=== PATIENT | female | born 1985 | race Caucasian/White ===

== ENCOUNTER 2017-10-21 01:54 | Inpatient (IN) | payer BC ==
[2017-10-21] MEDS ORDERED: Metoclopramide 10 MG/2 ML SDV ONE (02:22)
[2017-10-21] MEDS ORDERED: Lactated Ringers 1,000 ML ONE ×2 (02:23→03:30)
[2017-10-21] MEDS ORDERED: Citric Acid/Sodium Citrate Solution 30 ML Cup ONE (02:23)
[2017-10-21] MEDS ORDERED: Nalbuphine 20 MG/ML 1 ML Syringe IVPUSH PRN (02:30)
[2017-10-21] MEDS ORDERED: ceFAZolin 2 GM in Premix Bag 1 BAG IV ONE (02:30)
[2017-10-21] MEDS ORDERED: Metoclopramide 10 MG/2 ML SDV IVPUSH ONE (02:30)
[2017-10-21] MEDS ORDERED: Oxytocin/Lactated Ringers 10 UNIT/1,000 ML BAG IV SCH (02:30)
[2017-10-21] MEDS ORDERED: Citric Acid/Sodium Citrate Solution 30 ML Cup PO ONE (02:30)
[2017-10-21] MEDS ORDERED: Lactated Ringers 1,000 ML IV SCH (02:30)
[2017-10-21] MEDS ORDERED: Sodium Chloride 0.9% 10 ML Syringe FLUSH PRN (02:30)
--- NOTE | 2017-10-21 02:44 | PCM.LDHP ---
L&D History of Present Illness - General Admit Problem/Dx: Patient Status Order with Admit Dx/Problem 10/21/17 02:30 Patient Status [ADT] Routine Admission Diagnosis/Problem Admission Diagnosis/Problem - History of Present Illness Introduction:: 10/20/17 06:28 39-5/7 week intrauterine upon admission for elective repeat section. Source of Information: Patient History Limitations: Reports: No Limitations - History of Present Illness Introduction:: Manda is a 32-year-old 3 para 2003 white female who is admitted for elective repeat certain section on the a.m. of 10/21/17.. JENN is set at 2017 by certain last menstrual period which started on 01/22/2017 and is supported by 2 ultrasounds being done on 03/17/2017 on 06/16/2017. The procedure of repeat section, risks, benefits, alternatives of care and follow-up were discussed in detail. She appears understand and wishes to proceed. She's had 2 previous C-sections with the first one being done for nonreassuring heart tones and the second one being done as a repeat . [employer] YAC[employer] history patient is 3 para 2001. Patient had menarche at age 12, cycles occur daily 28 days and last for 5-7 days. She was using no control to time conception and her final last period was certain starting on 01/22/2017. Previous 2 deliveries include the followin. Male born 11/27/2009 at 40 weeks gestational age7 lbs. 6 oz.primary section done in [place], [place]. Child's name is Tariq. done for nonreassuring heart tones 2. Male infant born 07/07/2013 at 38 weeks gestational age7 lbs. 0 oz.[facility] in [place]. Child's name is Migue. course has been remarkable for hypothyroidism and exophthalmos. 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 Condition has been stable and follow-up after has been advised. In genetic testing. Group B strep screen is positive. She has a history of Graves' disease. Serum progesterone early on resulted in progesterone supplementation. Rh- and did receive RhoGAM on 07/28/2017. course started at 10-6/7 weeks gestational age. She gained 21 pounds from 143-164 pounds during the course of the . Fundal height growth was appropriate. No problems were encountered. Vital signs remained stable throughout the course. Laboratory testing and showed blood to be O- with a negative end by screen. Hemoglobin is 12.5 g/dL. Platelets were 265,000 at first visit. She is rubella immune. RPR is nonreactive. Urine culture was unremarkable. Hepatitis B surface antigen and HIV assays were both negative. Chlamydia and gonorrhea both negative. TSH on 04/08/2017 was 10.907 and her thyroid hormone dosage was increased. Second trimester labs showed hemoglobin 11.3 g/dL which time her her iron supplementation was started. Platelets are normal at 186,000. One-hour GTT was normal at 108. End by screen was negative at that time and RhoGAM was given. Group B strep screen was done at 36 weeks and was found to be positive. Allergies none Medications: 1. Claritin 10 mg by mouth daily when necessary for allergies 2. Ferrous sulfate 325 mg by mouth daily 3. Colace 100 mg by mouth twice a day when necessary for constipation 4. Zantac 150 mg by mouth every 12 hours when necessary for dyspepsia 5. Synthroid 137 g daily 6. Calcium 600 mg tablets daily 7. vitamins 1 by mouth daily 8. Vitamin D 1000 units daily by mouth Past medical history: 1. Graves' disease with resultant exophthalmos. 2. Gastro-esophageal reflux disease Past surgical history: 1. 2 2. Cholecystectomy 3. Total thyroidectomy Family history: Mother and father alive and well. Grandmother with colon cancer and paternal grandfather with prostate cancer. No anesthesia, bleeding, blood clotting problems noted in the family. Social history: Patient is . is Shakir. She does not use any significant most alcohol, drugs or tobacco. They live in [place], [place]. Review of systems: In general patient presently feels well. She reports good activity. Skin: Negative HEENT: Negative Cardiovascular: No chest pain or exercise intolerance Respiratory: No shortness of breath or infectious symptoms Breasts: Changes associated with . Patient plans to breast-feed. GI: Negative : Changes associated with increase in fundal height Extremities and musculoskeletal: Negative other than occasional edema Neurological: Negative Psychological: Negative Physical exam: In general the patient is well-developed, well-nourished, pleasant feels stated age in no acute distress. Blood pressure on last evaluation in clinic was 122/62. Weight was 160 4. or with the pre- weight of 143, height is 5 feet 8 inches. Pre-gravid body mass index is 21.3. Skin is warm and dry without lesions. HEENT, neck and back with some mild exophthalmos. This is unchanged end course the . Lungs are clear with good breath sounds in all lung celis. Cardiovascular exam shows regular rate and rhythm without murmurs. Breasts not evaluate this time as they were checked at first visit and found to be normal. Abdomen is protuberant with last fundal height at 37.5 cm baby in vertex presentation by Alo maneuvers. Last cervical exam on 10/14/2017 shows cervix to be closed, 50% effaced, soft, -5, mid position. Extremities and neurological exam are grossly within normal limits. H&P Review of Systems - Review of Systems: Review Of Systems: See Below L&D Exam - Exam Exam: See Below Problem List Initiated/Reviewed/Updated: Yes Assessment/Plan Comment:: 1. 38 6/7 week intrauterine upon admission, in early labor after continuous rupture membranes, for repeat section. 2.History of hyperthyroidism, status post total thyroidectomy on hormone replacement now. Stable during . Under the care of both endocrinology and ophthalmology. Patient scheduled to see them . 3. Rh negative-has had RhoGAM during . May be candidate for RhoGAM if baby is Rh+ 4. Rubella immune 5. Patient plans to breast-feed Plan: 1. Repeat lower uterine segment transverse section through [place] skin incision under spinal anesthesia. Procedure, risks, benefits, alternatives of care, follow-up all discussed with patient. She appears understand, wishes to proceed and signed a consent. 2. CBC, type and screen, urinalysis prior to surgery 3. Ancef 2 g IV preop for infection prophylaxis. 4. DVT prophylaxis with SCDs. 5. Routine care thereafter. - Related Data Allergies/Adverse Reactions: Allergies Allergy/AdvReac Type Severity Reaction Status Date / Time No Known Allergies Allergy Verified 10/21/17 02:15 Past Medical History HEENT History: Reports: Other (See Below) Other HEENT History: iNCREASED PRESSURE IN OPTIC NERVE, FOLOW UP IN nov. [employer] Y[employer]HT History: Reports: Endocrine/Metabolic History: Reports: Hypothyroidism Hematologic History: Reports: Anemia Social & Family History - Family History Family Medical History: Noncontributory - Tobacco Use Smoking Status *Q: Never Smoker Second Hand Smoke Exposure: No - Caffeine Use Caffeine Use: Reports: Coffee - Recreational Drug Use Recreational Drug Use: No H&P Review of Systems - Review of Systems: Review Of Systems: See Below L&D Exam - Exam Exam: See Below - Vital Signs Vital Signs: Last Vital Signs Temp 37.0 C 10/21/17 02:11 Pulse 71 10/21/17 02:11 Resp 16 10/21/17 02:11 BP 133/77 10/21/17 02:11 Pulse Ox 100 10/21/17 02:11 Weight: 75.296 kg Problem List Initiated/Reviewed/Updated: Yes Orders Last 24hrs: Active Orders 24 hr Category Date Time Status Patient Status [ADT] Routine ADT 10/21/17 02:30 Active Communication Order [RC] ROUTINE Care 10/21/17 02:30 Active Heart Tones [RC] PER UNIT ROUTINE Care 10/21/17 02:30 Active Non Stress Test [RC] PER UNIT ROUTINE Care 10/21/17 02:30 Active Peripheral IV Care [RC] . DIRECTED Care 10/21/17 02:31 Active Procedure Site Prep Instruct [RC] ASDIRECTED Care 10/21/17 02:30 Active Verify Patient Consent Obtain [RC] PER UNIT ROUTINE Care 10/21/17 02:30 Active Vital Signs [RC] PFP Care 10/21/17 02:30 Active CBC WITH AUTO DIFF [HEME] Stat Lab 10/21/17 02:30 Ordered RAPID PLASMA REAGIN,RPR [CHEM] Routine Lab 10/21/17 02:30 Ordered TYPE AND SCREEN [BBK] Routine Lab 10/21/17 02:30 Ordered Lactated Ringers [Ringers, Lactated] 1,000 ml Med 10/21/17 02:30 Active IV ASDIRECTED Metoclopramide [Reglan] Med 10/21/17 02:30 Once 10 mg IVPUSH ONETIME ONE Nalbuphine [Nubain] Med 10/21/17 02:30 Ordered 10 mg IVPUSH Q2H PRN Oxytocin/Lactated Ringers [Pitocin in LR 10 Units/1,000 Med 10/21/17 02:30 Active ML] 10 unit in 1,000 ml IV ASDIRECTED Sodium Chloride 0.9% [Saline Flush] Med 10/21/17 02:30 Active 10 ml FLUSH ASDIRECTED PRN ceFAZolin [Ancef] 2 gm Med 10/21/17 02:30 Active Premix Bag 1 bag IV ONETIME Peripheral IV Insertion Adult [OM.PC] Routine Oth 10/21/17 02:30 Ordered Schedule Procedure [COMM] Per Unit Routine Oth 10/21/17 02:30 Ordered Resuscitation Status Routine Resus Stat 10/21/17 02:30 Ordered Medication Orders Cefazolin Sodium/Dextrose 2 gm (/ Premix) 50 mls @ 100 mls/hr IV ONETIME ONE Stop: 10/21/17 02:59 Lactated Ringer's (Ringers, Lactated) 1,000 mls @ 125 mls/hr IV ASDIRECTED SYLVIE Last Admin: 10/21/17 02:39 Dose: 125 mls/hr Oxytocin/Lactated Ringer's (Pitocin In Lr 10 Units/1,000 Ml) 10 unit in 1,000 mls @ 100 mls/hr IV ASDIRECTED SYLVIE Nalbuphine HCl (Nubain) 10 mg IVPUSH Q2H PRN PRN Reason: pain Sodium Chloride (Saline Flush) 10 ml FLUSH ASDIRECTED PRN PRN Reason: Keep Vein Open
[2017-10-21] MEDS ORDERED: Bupivacaine 0.5% 30 ML SDV ONE (02:50)
[2017-10-21] MEDS ORDERED: Morphine PF 1 MG/ML Amp ONE (02:57)
--- NOTE | 2017-10-21 02:59 | PCM.PREANE ---
Preanesthetic Assessment - Anesthesia/Transfusion/Family Hx Anesthesia History: Prior Anesthesia Reaction Type of Anesthesia Reaction: Excessive Nausea/Vomiting Transfusion History: No Prior Transfusion(s) - Review of Systems General: No Symptoms Pulmonary: No Symptoms Cardiovascular: No Symptoms Gastrointestinal: No Symptoms Neurological: No Symptoms Other: Reports: None - Physical Assessment NPO Status Date: 10/21/17 NPO Status Time: 01:00 O2 Sat by Pulse Oximetry: 100 Respiratory Rate: 16 Vital Signs: Last Vital Signs Temp 98.6 F 10/21/17 02:11 Pulse 71 10/21/17 02:11 Resp 16 10/21/17 02:11 BP 133/77 10/21/17 02:11 Pulse Ox 100 10/21/17 02:11 Height: 1.73 m Weight: 75.296 kg ASA Class: 2E Mental Status: Alert & Oriented x3 Airway Class: Mallampati = 1 Dentition: Reports: Normal Dentition Thyro-Mental Finger Breadths: 3 Mouth Opening Finger Breadths: 3 ROM/Head Extension: Full Lungs: Clear to Auscultation Cardiovascular: Regular Rate - Allergies Allergies/Adverse Reactions: Allergies Allergy/AdvReac Type Severity Reaction Status Date / Time No Known Allergies Allergy Verified 10/21/17 02:15 - Acknowledgements Anesthesia Type Planned: Spinal Pt an Appropriate Candidate for the Planned Anesthesia: Yes Alternatives and Risks of Anesthesia Discussed w Pt/Guardian: Yes Pt/Guardian Understands and Agrees with Anesthesia Plan: Yes PreAnesthesia Questionnaire HEENT History: Reports: Other (See Below) Other HEENT History: iNCREASED PRESSURE IN OPTIC NERVE, FOLOW UP IN nov. 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: Endocrine/Metabolic History: Reports: Hypothyroidism Hematologic History: Reports: Anemia - Past Surgical History GI Surgical History: Reports: Cholecystectomy Female Surgical History: Reports: Section (x2) Endocrine Surgical History: Reports: Thyroidectomy - SUBSTANCE USE Smoking Status *Q: Never Smoker Second Hand Smoke Exposure: No Recreational Drug Use History: No - HOME MEDS Home Medications: Home Meds Cholecalciferol (Vitamin D3) [Vitamin D3] 1 tab PO DAILY 10/21/17 [History] Docusate Sodium [Colace] 100 mg PO DAILY 10/21/17 [History] Ferrous Sulfate [Iron] 325 mg PO DAILY 10/21/17 [History] Levothyroxine Sodium [Synthroid] 137 mcg PO ACBREAKFAST 10/21/17 [History] Loratadine [Claritin] 10 mg PO ASDIRECTED PRN 10/21/17 [History] PNV95/Ferrous Fumarate/FA [ Tablet] 1 tab PO DAILY 10/21/17 [History] Ranitidine HCl [Zantac 75] 1 tab PO ASDIRECTED PRN 10/21/17 [History] - CURRENT (IN HOUSE) MEDS Current Meds: Current Medications Cefazolin Sodium/Dextrose 2 gm (/ Premix) 50 mls @ 100 mls/hr IV ONETIME ONE Stop: 10/21/17 02:59 Lactated Ringer's (Ringers, Lactated) 1,000 mls @ 125 mls/hr IV ASDIRECTED [facility] Last Admin: 10/21/17 02:39 Dose: 125 mls/hr Oxytocin/Lactated Ringer's (Pitocin In Lr 10 Units/1,000 Ml) 10 unit in 1,000 mls @ 100 mls/hr IV ASDIRECTED SYLVIE Nalbuphine HCl (Nubain) 10 mg IVPUSH Q2H PRN PRN Reason: pain Sodium Chloride (Saline Flush) 10 ml FLUSH ASDIRECTED PRN PRN Reason: Keep Vein Open Discontinued Medications Citric Acid/Sodium Citrate (Bicitra Solution) Confirm Administered Dose 30 ml .ROUTE .STK-MED ONE Stop: 10/21/17 02:24 Citric Acid/Sodium Citrate (Bicitra Solution) 30 ml PO ONETIME ONE Stop: 10/21/17 02:31 Last Admin: 10/21/17 02:39 Dose: 30 ml Lactated Ringer's (Ringers, Lactated) Confirm Administered Dose 1,000 mls @ as directed .ROUTE .STK-MED ONE Stop: 10/21/17 02:24 Metoclopramide HCl (Reglan) Confirm Administered Dose 10 mg .ROUTE .STK-MED ONE Stop: 10/21/17 02:23 Metoclopramide HCl (Reglan) 10 mg IVPUSH ONETIME ONE Stop: 10/21/17 02:31 Last Admin: 10/21/17 02:39 Dose: 10 mg
[2017-10-21] MEDS ORDERED: Bupivacaine 0.75%/D5W 2 ML Amp ONE (03:00)
[2017-10-21] MEDS ORDERED: ceFAZolin 1 GM Vial ONE (03:00)
[2017-10-21] MEDS ORDERED: Oxytocin 10 Units/1 ML SDV ONE ×3 (03:00→03:53)
[2017-10-21] MEDS ORDERED: Ketorolac 30 MG/ML SDV ONE (03:47)
--- NOTE | 2017-10-21 04:26 | PCM.POSTAN ---
POST ANESTHESIA ASSESSMENT - MENTAL STATUS Mental Status: Alert, Oriented - RESPIRATORY Respiratory Status: Respiratory Rate WNL, Airway Patent, O2 Saturation Stable - CARDIOVASCULAR CV Status: Pulse Rate WNL, Blood Pressure Stable - GASTROINTESTINAL GI Status: No Symptoms - PAIN Pain Score: 0 - POST OP HYDRATION Hydration Status: Adequate & Stable
--- NOTE | 2017-10-21 04:28 | PCM.OPNOTE ---
- General Post-Op/Procedure Note Date of Surgery/Procedure: 10/21/17 Operative Procedure(s): Repeat lower uterine segment transverse section through Pfannenstiel skin incision Findings: Uterus tubes and ovaries consistent with term . Increased vascularity in the area of the bladder and in the area of the broad ligaments bilaterally. Ovaries functional in appearance. Lower uterine segment very thin with myometrium only 2 mm thick. Clear amniotic fluid. Baby in vertex presentation. Male infant weighing 6 lbs. 15 oz. with Apgars of 8 and 9 born at 0336 hrs on . Pre Op Diagnosis: 1. 38-6/7 week intrauterine . 2. Spontaneous rupture membranes, early active labor, desire for repeat section Post-Op Diagnosis: Same with delivery of viable, 6 lbs. 15 oz. male with Apgars of 8 and 9 at 0336 hours on 10/22/2007 Anesthesia Technique: Spinal Other Anesthesia Type: Marcaine 0.5%20 mL local Primary Surgeon: Mj Childress Secondary Surgeon: Kari Mares Anesthesia Provider: Eugene Buenrostro Gantry Crane Operator: Anita Lucio Reason Gantry Crane Operator Was Necessary: Retraction, assistance, patient safety, quality of care. Role of Gantry Crane Operator: Retraction, assistance Fluid Replacement, Intraop: 2,500 Output, Urine Amount: 500 EBL in mLs: 500 Drain/Tube Comments:: Indwelling bladder catheter Complications: None Condition: Good Free Text/Narrative:: Surgery duration: Surgery duration: 41 minutes Procedure: The patient is appropriately consented. Patient was transferred to the room and placed in a sitting position. Spinal anesthesia was administered. After confirmation of adequate anesthesia patient was placed in a supine position with a wedge under her right side to facilitate left lateral positioning. The patient was prepped and draped in usual fashion after Dangelo catheter was already placed . The anesthetic was checked and found to be adequate. 20 mL of Marcaine 0.5% was injected locally in the Pfannenstiel incision site. The Pfannenstiel skin incision was then made and carried down through skin, subcutaneous and fascial layers. Old skin scar was removed. The fascia was then undermined superiorly and inferiorly to allow for adequate operating room. The recti muscles midline and preperitoneal fat was bluntly dissected. Peritoneal cavity was entered longitudinally. The vesicouterine peritoneum was then incised transversely and bladder flap was developed. Myometrium was incised transversely to the level of the amniotic sac. This incision was extended bilaterally in a blunt fashion. The amniotic sac was then ruptured resulting in clear amniotic fluid. A hand is placed in the low uterine segment and the baby's head was brought forth through the incision. The baby was completely delivered using fundal pressure in a routine fashion. The nose and mouth were bulb suctioned. Baby's cord was clamped x2 cut and baby was handed off to attending return agent airport Dr Cooper. Placenta was expressed after cord blood was obtained. Uterus was then exteriorized to allow for easier closure. The cervix was assessed and found to be dilated adequately to allow egress of blood. The uterus was closed in 2 layers. The first layer a running locked suture of 0 Monocryl, the second layer a running locked vertical mattress suture of 0 Monocryl. Hemostasis confirmed at this time. Sponge instrument needle counts are correct. The uterus was returned to the abdominal cavity and lateral gutters were cleared of blood. Once again sponge needle counts are correct. The anterior abdominal wall was closed with a #1 PDS suture from angle to angle. The subcutaneous area was found to be free of any bleeders. Skin was closed with a running subcuticular stitch of 3-0 Monocryl in a vertical mattress suture fashion using a Henri needle. Prineo mesh/glue was then applied to further approximate the incision. It should be noted that patient received 2 g of Ancef preoperatively for infection prophylaxis and had Pitocin infused after delivery of the placenta to facilitate uterine contraction. She also had sequential compression stockings in place for DVT prophylaxis. Patient was discharged from the operating room in satisfactory condition.
[2017-10-21] MEDS ORDERED: Dextrose 5%-Lactated Ringers 1,000 ML IV SCH (05:27)
[2017-10-21] MEDS ORDERED: Lanolin 100% Cream 7 GM Tube TOP PRN (05:27)
[2017-10-21] MEDS ORDERED: Ibuprofen 800 MG Tab PO SCH (05:27)
[2017-10-21] MEDS ORDERED: Naloxone 0.4 MG/ML SDV IVPUSH PRN (05:27)
[2017-10-21] MEDS ORDERED: Docusate Sodium 100 MG Cap PO PRN (05:27)
[2017-10-21] MEDS ORDERED: ePHEDrine 50 MG/ML SDV IVPUSH PRN (05:27)
[2017-10-21] MEDS ORDERED: Ondansetron 4 MG/2 ML SDV IV PRN (05:27)
[2017-10-21] MEDS ORDERED: diphenhydrAMINE 50 MG/ML SDV IVPUSH PRN (05:27)
[2017-10-21] MEDS: Simethicone 80 MG Tab.Chew PO SCH ×3 (08:09→17:49)
--- NOTE | 2017-10-21 09:07 | PCM.PN ---
- General Info Date of Service: 10/21/17 Admission Dx/Problem (Free Text): 32 y/o admitted following repeat early 10/21/17. Functional Status: Reports: Pain Controlled (patient desires ibuprofen; pain otherwise controlled), Tolerating Diet, Ambulating. Denies: Urinating (catheter ) - Review of Systems General: Reports: No Symptoms HEENT: Reports: No Symptoms Pulmonary: Reports: No Symptoms Cardiovascular: Reports: No Symptoms Gastrointestinal: Reports: No Symptoms Genitourinary: Reports: No Symptoms Musculoskeletal: Reports: No Symptoms Skin: Reports: Other ( incision with some drainage and tenderness) Neurological: Reports: No Symptoms Psychiatric: Reports: No Symptoms - Patient Data Vitals - Most Recent: Last Vital Signs Temp 97.9 F 10/21/17 07:45 Pulse 72 10/21/17 07:46 Resp 18 10/21/17 05:10 BP 111/71 10/21/17 07:45 Pulse Ox 100 10/21/17 07:46 Weight - Most Recent: 166 lb I&O - Last 24 Hours: Intake & Output 10/20/17 10/21/17 10/21/17 22:59 06:59 14:59 Intake Total 2850 Output Total 1400 Balance 1450 Lab Results Last 24 Hours: Laboratory Results - last 24 hr 10/21/17 10/21/17 Range/Units 02:35 02:35 WBC 8.41 (3.98-10.04) K/mm3 RBC 3.65 L (3.98-5.22) M/mm3 Hgb 12.0 (11.2-15.7) gm/L Hct 33.9 L (34.1-44.9) % MCV 92.9 (79.4-94.8) fl MCH 32.9 H (25.6-32.2) pg MCHC 35.4 (32.2-35.5) g/dl RDW Std Deviation 42.2 (36.4-46.3) fL Plt Count 171 L (182-369) K/mm3 MPV 10.1 (9.4-12.3) fl Neut % (Auto) 73.7 H (34.0-71.1) % Lymph % (Auto) 17.5 L (19.3-51.7) % Cook % (Auto) 8.1 (4.7-12.5) % Eos % (Auto) 0.4 L (0.7-5.8) Baso % (Auto) 0.1 (0.1-1.2) % Neut # (Auto) 6.20 H (1.56-6.13) K/mm3 Lymph # (Auto) 1.47 (1.18-3.74) K/mm3 Cook # (Auto) 0.68 H (0.24-0.36) K/mm3 Eos # (Auto) 0.03 L (0.04-0.36) K/mm3 Baso # (Auto) 0.01 (0.01-0.08) K/mm3 Blood Type O NEGATIVE Gel Antibody Screen Negative Med Orders - Current: Current Medications Diphenhydramine HCl (Benadryl) 25 mg IVPUSH Q6H PRN PRN Reason: Itching or Nausea Last Admin: 10/21/17 07:48 Dose: 25 mg Docusate Sodium (Colace) 100 mg PO Q12H PRN PRN Reason: Constipation Emollient Ointment (Lansinoh Hpa) 0 gm TOP ASDIRECTED PRN PRN Reason: Sore Nipples Last Admin: 10/21/17 08:09 Dose: 1 applic Ephedrine Sulfate (Ephedrine Sulfate) 5 mg IVPUSH SEECOMMENT PRN PRN Reason: Other Dextrose/Lactated Ringer's (Dextrose 5%-Lactated Ringers) 1,000 mls @ 125 mls/ hr IV ASDIRECTED [facility] Stop: 10/21/17 13:26 Last Admin: 10/21/17 05:47 Dose: 125 mls/hr Ibuprofen (Motrin) 800 mg PO Q8H [facility] Levothyroxine Sodium (Levothroid) 137 mcg PO ACBREAKFAST [facility] Last Admin: 10/21/17 08:04 Dose: 137 mcg Naloxone HCl (Narcan) 0.1 mg IVPUSH SEECOMMENT PRN PRN Reason: Respiratory Depression Ondansetron HCl (Zofran) 4 mg IV Q4H PRN PRN Reason: Nausea/Vomiting Oxycodone/Acetaminophen (Percocet 325-5 Mg) 2 tab PO Q4H PRN PRN Reason: Pain (moderate 4-6) Prenat Multivit/[place]/Iron/Folic Ac ( Plus Iron) 1 each PO BEDTIME [facility] Simethicone (Simethicone) 80 mg PO PCBED [facility] Last Admin: 10/21/17 08:09 Dose: 80 mg Discontinued Medications Bupivacaine HCl (Marcaine 0.5%) Confirm Administered Dose 30 ml .ROUTE .STK-MED ONE Stop: 10/21/17 02:51 Last Admin: 10/21/17 03:30 Dose: 20 ml Bupivacaine HCl/Dextrose (Marcaine 0.75% Spinal) Confirm Administered Dose 2 ml .ROUTE .STK-MED ONE Stop: 10/21/17 03:01 Cefazolin Sodium (Ancef) Confirm Administered Dose 2 gm .ROUTE .STK-MED ONE Stop: 10/21/17 03:01 Citric Acid/Sodium Citrate (Bicitra Solution) Confirm Administered Dose 30 ml .ROUTE .STK-MED ONE Stop: 10/21/17 02:24 Citric Acid/Sodium Citrate (Bicitra Solution) 30 ml PO ONETIME ONE Stop: 10/21/17 02:31 Last Admin: 10/21/17 02:39 Dose: 30 ml Lactated Ringer's (Ringers, Lactated) Confirm Administered Dose 1,000 mls @ as directed .ROUTE .STK-MED ONE Stop: 10/21/17 02:24 Cefazolin Sodium/Dextrose 2 gm (/ Premix) 50 mls @ 100 mls/hr IV ONETIME ONE Stop: 10/21/17 02:59 Lactated Ringer's (Ringers, Lactated) 1,000 mls @ 125 mls/hr IV ASDIRECTED [facility] Last Admin: 10/21/17 02:39 Dose: 125 mls/hr Oxytocin/Lactated Ringer's (Pitocin In Lr 10 Units/1,000 Ml) 10 unit in 1,000 mls @ 100 mls/hr IV ASDIRECTED [facility] Lactated Ringer's (Ringers, Lactated) Confirm Administered Dose 1,000 mls @ as directed .ROUTE .STK-MED ONE Stop: 10/21/17 03:31 Ibuprofen (Motrin) 800 mg PO Q8H [facility] Ketorolac Tromethamine (Toradol) Confirm Administered Dose 30 mg .ROUTE .STK- MED ONE Stop: 10/21/17 03:48 Metoclopramide HCl (Reglan) Confirm Administered Dose 10 mg .ROUTE .STK-MED ONE Stop: 10/21/17 02:23 Metoclopramide HCl (Reglan) 10 mg IVPUSH ONETIME ONE Stop: 10/21/17 02:31 Last Admin: 10/21/17 02:39 Dose: 10 mg Morphine Sulfate (Duramorph Pf) Confirm Administered Dose 1 mg .ROUTE .STK-MED ONE Stop: 10/21/17 02:58 Nalbuphine HCl (Nubain) 10 mg IVPUSH Q2H PRN PRN Reason: pain Oxytocin (Pitocin) Confirm Administered Dose 10 unit .ROUTE .STK-MED ONE Stop: 10/21/17 03:01 Oxytocin (Pitocin) Confirm Administered Dose 10 unit .ROUTE .STK-MED ONE Stop: 10/21/17 03:31 Oxytocin (Pitocin) Confirm Administered Dose 20 unit .ROUTE .STK-MED ONE Stop: 10/21/17 03:54 Sodium Chloride (Saline Flush) 10 ml FLUSH ASDIRECTED PRN PRN Reason: Keep Vein Open - Exam Quality Assessment: Urine Catheter General: Alert, Oriented, Cooperative Lungs: Clear to Auscultation, Normal Respiratory Effort Cardiovascular: Regular Rate, Regular Rhythm, No Murmurs GI/Abdominal Exam: Normal Bowel Sounds, Soft, No Distention, No Abnormal Bruit Back Exam: Normal Inspection, Full Range of Motion Skin: Warm, Dry, Intact Wound/Incisions: Healing Well, Drainage (some oozing at incision ) Neurological: No New Focal Deficit Psy/Mental Status: Alert, Normal Affect, Normal Mood - Problem List Review Problem List Initiated/Reviewed/Updated: Yes - Assessment Assessment:: Healthy appearing 32 y/o female Status [id number] Patient doing well Tolerating food and activity Notes some tenderness and oozing of incision Uterus is firm and non-tender, below the umbilicus - Plan Plan:: Rouine care Diet and activity as tolerated Ibuprofen 800 mg q8hr for pain control Anita Lucio, MS-3. Dr. Mj Childress has examined the patient and reviewed the plan.
[2017-10-21] MEDS: Ibuprofen 800 MG Tab PO SCH ×2 (12:00→18:55)
--- NOTE | 2017-10-21 14:07 | PCM48HPAN ---
Post Anesthesia Note - EVALUATION WITHIN 48HRS OF ANESTHETIC Vital Signs in Normal Range: Yes Patient Participated in Evaluation: Yes Respiratory Function Stable: Yes Airway Patent: Yes Cardiovascular Function Stable: Yes Hydration Status Stable: Yes Pain Control Satisfactory: Yes Nausea and Vomiting Control Satisfactory: Yes Mental Status Recovered: Yes
[2017-10-21] MEDS: Acetaminophen/oxyCODONE 325-5 MG Tab PO PRN ×2 (17:49→22:49)
[2017-10-22] MEDS: Ibuprofen 800 MG Tab PO SCH ×4 (02:42→20:08)
[2017-10-22] MEDS: Acetaminophen/oxyCODONE 325-5 MG Tab PO PRN ×4 (04:06→23:11)
[2017-10-22] MEDS: Simethicone 80 MG Tab.Chew PO SCH ×5 (09:03→23:09)
[2017-10-22] MEDS: Prenatal Multivitamin with Calcium/Folic Acid/Iron Tab PO SCH ×2 (09:17→22:44)
[2017-10-23] MEDS: Acetaminophen/oxyCODONE 325-5 MG Tab PO PRN ×3 (03:14→16:00)
[2017-10-23] MEDS: Ibuprofen 800 MG Tab PO SCH ×3 (04:36→18:19)
[2017-10-23] MEDS: Simethicone 80 MG Tab.Chew PO SCH ×4 (08:07→21:30)
--- NOTE | 2017-10-23 09:47 | PCM.SN ---
- Free Text/Narrative Note: note: Post operative day 2: Patient is doing well in the period. Minimal lochia, voiding well, ambulated without problems. Nursing without concerns. Patient is afebrile, vital signs are stable Abdomen is flat, soft, uterus is below the umbilicus and is firm and nontender. Incision is dry and intact. Skin mesh is in place and normal in position Legs are nontender. Assessment: recovery going well. Plan: Routine care. Patient be discharged home within the next 24-48 hours.
[2017-10-23] MEDS: Prenatal Multivitamin with Calcium/Folic Acid/Iron Tab PO SCH (20:54)
[2017-10-24] MEDS: Ibuprofen 800 MG Tab PO SCH (02:27)
[2017-10-24] MEDS: Simethicone 80 MG Tab.Chew PO SCH (08:18)
[2017-10-24] MEDS: Acetaminophen/oxyCODONE 325-5 MG Tab PO PRN (08:18)
--- NOTE | 2017-10-24 10:39 | PCM.DCSUM1 ---
Discharge Summary - Hospital Course Free Text/Narrative:: [facility] Post-Op/Procedure Note Patient Name: AVA OLIVERA Date of : 81 Patient Status: Inpatient Attending Provider: Mj Childress Date: 10/21/17 04:22 Initialization Date: 10/21/17 04:22 - General Post-Op/Procedure Note Date of Surgery/Procedure: 10/21/17 Operative Procedure(s): Repeat lower uterine segment transverse section through Pfannenstiel skin incision Findings: Uterus tubes and ovaries consistent with term . Increased vascularity in the area of the bladder and in the area of the broad ligaments bilaterally. Ovaries functional in appearance. Lower uterine segment very thin with myometrium only 2 mm thick. Clear amniotic fluid. Baby in vertex presentation. Male infant weighing 6 lbs. 15 oz. with Apgars of 8 and 9 born at 0336 hrs on . Pre Op Diagnosis: 1. 38-6/7 week intrauterine . 2. Spontaneous rupture membranes, early active labor, desire for repeat section Post-Op Diagnosis: Same with delivery of viable, 6 lbs. 15 oz. male with Apgars of 8 and 9 at 0336 hours on 10/22/2007 Anesthesia Technique: Spinal Other Anesthesia Type: Marcaine 0.5%20 mL local Primary Surgeon: Mj Childress Secondary Surgeon: Kari Mares Anesthesia Provider: Eugene Buenrostro Poultry Farmer Egg: Anita Lucio Reason Poultry Farmer Egg Was Necessary: Retraction, assistance, patient safety, quality of care. Role of Poultry Farmer Egg: Retraction, assistance Fluid Replacement, Intraop: 2,500 Output, Urine Amount: 500 EBL in mLs: 500 Drain/Tube Comments:: Indwelling bladder catheter Complications: None Condition: Good Free Text/Narrative:: Surgery duration: Surgery duration: 41 minutes Procedure: The patient is appropriately consented. Patient was transferred to the room and placed in a sitting position. Spinal anesthesia was administered. After confirmation of adequate anesthesia patient was placed in a supine position with a wedge under her right side to facilitate left lateral positioning. The patient was prepped and draped in usual fashion after Dangelo catheter was already placed . The anesthetic was checked and found to be adequate. 20 mL of Marcaine 0.5% was injected locally in the Pfannenstiel incision site. The Pfannenstiel skin incision was then made and carried down through skin, subcutaneous and fascial layers. Old skin scar was removed. The fascia was then undermined superiorly and inferiorly to allow for adequate operating room. The recti muscles midline and preperitoneal fat was bluntly dissected. Peritoneal cavity was entered longitudinally. The vesicouterine peritoneum was then incised transversely and bladder flap was developed. Myometrium was incised transversely to the level of the amniotic sac. This incision was extended bilaterally in a blunt fashion. The amniotic sac was then ruptured resulting in clear amniotic fluid. A hand is placed in the low uterine segment and the baby's head was brought forth through the incision. The baby was completely delivered using fundal pressure in a routine fashion. The nose and mouth were bulb suctioned. Baby's cord was clamped x2 cut and baby was handed off to attending provider relations consultant Dr Cooper. Placenta was expressed after cord blood was obtained. Uterus was then exteriorized to allow for easier closure. The cervix was assessed and found to be dilated adequately to allow egress of blood. The uterus was closed in 2 layers. The first layer a running locked suture of 0 Monocryl, the second layer a running locked vertical mattress suture of 0 Monocryl. Hemostasis confirmed at this time. Sponge instrument needle counts are correct. The uterus was returned to the abdominal cavity and lateral gutters were cleared of blood. Once again sponge needle counts are correct. The anterior abdominal wall was closed with a #1 PDS suture from angle to angle. The subcutaneous area was found to be free of any bleeders. Skin was closed with a running subcuticular stitch of 3-0 Monocryl in a vertical mattress suture fashion using a Henri needle. Prineo mesh/glue was then applied to further approximate the incision. It should be noted that patient received 2 g of Ancef preoperatively for infection prophylaxis and had Pitocin infused after delivery of the placenta to facilitate uterine contraction. She also had sequential compression stockings in place for DVT prophylaxis. Patient was discharged from the operating room in satisfactory condition. HPI Initial Comments: [facility] Post-Op/Procedure Note Patient Name: AVA OLIVERA Date of : 81 Patient Status: Inpatient Attending Provider: Mj Childress Date: 10/21/17 04:22 Initialization Date: 10/21/17 04:22 - General Post-Op/Procedure Note Date of Surgery/Procedure: 10/21/17 Operative Procedure(s): Repeat lower uterine segment transverse section through Pfannenstiel skin incision Findings: Uterus tubes and ovaries consistent with term . Increased vascularity in the area of the bladder and in the area of the broad ligaments bilaterally. Ovaries functional in appearance. Lower uterine segment very thin with myometrium only 2 mm thick. Clear amniotic fluid. Baby in vertex presentation. Male infant weighing 6 lbs. 15 oz. with Apgars of 8 and 9 born at 0336 hrs on . Pre Op Diagnosis: 1. 38-6/7 week intrauterine . 2. Spontaneous rupture membranes, early active labor, desire for repeat section Post-Op Diagnosis: Same with delivery of viable, 6 lbs. 15 oz. male with Apgars of 8 and 9 at 0336 hours on 10/22/2007 Anesthesia Technique: Spinal Other Anesthesia Type: Marcaine 0.5%20 mL local Primary Surgeon: Mj Childress Secondary Surgeon: Kari Mares Anesthesia Provider: Eugene Buenrostro Poultry Farmer Egg: Anita Lucio Reason Poultry Farmer Egg Was Necessary: Retraction, assistance, patient safety, quality of care. Role of Poultry Farmer Egg: Retraction, assistance Fluid Replacement, Intraop: 2,500 Output, Urine Amount: 500 EBL in mLs: 500 Drain/Tube Comments:: Indwelling bladder catheter Complications: None Condition: Good Free Text/Narrative:: Surgery duration: Surgery duration: 41 minutes Procedure: The patient is appropriately consented. Patient was transferred to the room and placed in a sitting position. Spinal anesthesia was administered. After confirmation of adequate anesthesia patient was placed in a supine position with a wedge under her right side to facilitate left lateral positioning. The patient was prepped and draped in usual fashion after Dangelo catheter was already placed . The anesthetic was checked and found to be adequate. 20 mL of Marcaine 0.5% was injected locally in the Pfannenstiel incision site. The Pfannenstiel skin incision was then made and carried down through skin, subcutaneous and fascial layers. Old skin scar was removed. The fascia was then undermined superiorly and inferiorly to allow for adequate operating room. The recti muscles midline and preperitoneal fat was bluntly dissected. Peritoneal cavity was entered longitudinally. The vesicouterine peritoneum was then incised transversely and bladder flap was developed. Myometrium was incised transversely to the level of the amniotic sac. This incision was extended bilaterally in a blunt fashion. The amniotic sac was then ruptured resulting in clear amniotic fluid. A hand is placed in the low uterine segment and the baby's head was brought forth through the incision. The baby was completely delivered using fundal pressure in a routine fashion. The nose and mouth were bulb suctioned. Baby's cord was clamped x2 cut and baby was handed off to attending provider relations consultant Dr Cooper. Placenta was expressed after cord blood was obtained. Uterus was then exteriorized to allow for easier closure. The cervix was assessed and found to be dilated adequately to allow egress of blood. The uterus was closed in 2 layers. The first layer a running locked suture of 0 Monocryl, the second layer a running locked vertical mattress suture of 0 Monocryl. Hemostasis confirmed at this time. Sponge instrument needle counts are correct. The uterus was returned to the abdominal cavity and lateral gutters were cleared of blood. Once again sponge needle counts are correct. The anterior abdominal wall was closed with a #1 PDS suture from angle to angle. The subcutaneous area was found to be free of any bleeders. Skin was closed with a running subcuticular stitch of 3-0 Monocryl in a vertical mattress suture fashion using a Henri needle. Prineo mesh/glue was then applied to further approximate the incision. It should be noted that patient received 2 g of Ancef preoperatively for infection prophylaxis and had Pitocin infused after delivery of the placenta to facilitate uterine contraction. She also had sequential compression stockings in place for DVT prophylaxis. Patient was discharged from the operating room in satisfactory condition. Brief History: [facility] . Post-Op/Procedure Note. Patient Name: AVA OLIVERA [facility]ical Record Number: [id number]. Date of : Patient Status: Inpatient. Attending Provider: Mj Childress FAccount Number: [id number]. Date: 10/21/17 04:22Initialization Date: 10/21/17 04:22. - General Post-Op/Procedure Note. Date of Surgery/Procedure: 10/21/17. Operative Procedure(s): Repeat lower uterine segment transverse section through Pfannenstiel skin incision. Findings: Uterus tubes and ovaries consistent with term . Increased vascularity in the area of the bladder and in the area of the broad ligaments bilaterally. Ovaries functional in appearance. Lower uterine segment very thin with myometrium only 2 mm thick. Clear amniotic fluid. Baby in vertex presentation. Male weighing 6 lbs. 15 oz. with Apgars of 8 and 9 born at 0336 hrs on 10/21/2017. Pre Op Diagnosis: 1. 38-6/7 week intrauterine . 2. Spontaneous rupture membranes, early active labor, desire for repeat section. Post -Op Diagnosis: Same with delivery of viable, 6 lbs. 15 oz. male with Apgars of 8 and 9 at 0336 hours on 10/22/2007. Anesthesia Technique: Spinal. Other Anesthesia Type: Marcaine 0.5%20 mL local. Primary Surgeon: Mj Childress. Secondary Surgeon: Kari Mares. Anesthesia Provider: Eugene Buenrostro. Poultry Farmer Egg: Anita Lucio. Reason Poultry Farmer Egg Was Necessary: Retraction, assistance, patient safety, quality of care. Role of Poultry Farmer Egg: Retraction, assistance. Fluid Replacement, Intraop: 2,500. Output, Urine Amount: 500. EBL in mLs: 500. Drain/Tube Comments:: Indwelling bladder catheter. Complications: None. Condition: Good. Free Text/Narrative:: Surgery duration : Surgery duration: 41 minutes. Procedure: The patient is appropriately consented. Patient was transferred to the room and placed in a sitting position. Spinal anesthesia was administered. After confirmation of adequate anesthesia patient was placed in a supine position with a wedge under her right side to facilitate left lateral positioning. The patient was prepped and draped in usual fashion after Dangelo catheter was already placed . The anesthetic was checked and found to be adequate. 20 mL of Marcaine 0.5% was injected locally in the Pfannenstiel incision site. The Pfannenstiel skin incision was then made and carried down through skin, subcutaneous and fascial layers. Old skin scar was removed. The fascia was then undermined superiorly and inferiorly to allow for adequate operating room. The recti muscles midline and preperitoneal fat was bluntly dissected. Peritoneal cavity was entered longitudinally. The vesicouterine peritoneum was then incised transversely and bladder flap was developed. Myometrium was incised transversely to the level of the amniotic sac. This incision was extended bilaterally in a blunt fashion. The amniotic sac was then ruptured resulting in clear amniotic fluid. A hand is placed in the low uterine segment and the baby' s head was brought forth through the incision. The baby was completely delivered using fundal pressure in a routine fashion. The nose and mouth were bulb suctioned. Baby's cord was clamped x2 cut and baby was handed off to attending provider relations consultant Dr Cooper. Placenta was expressed after cord blood was obtained. Uterus was then exteriorized to allow for easier closure. The cervix was assessed and found to be dilated adequately to allow egress of blood. The uterus was closed in 2 layers. The first layer a running locked suture of 0 Monocryl, the second layer a running locked vertical mattress suture of 0 Monocryl. Hemostasis confirmed at this time. Sponge instrument needle counts are correct. The uterus was returned to the abdominal cavity and lateral gutters were cleared of blood. Once again sponge needle counts are correct. The anterior abdominal wall was closed with a #1 PDS suture from angle to angle. The subcutaneous area was found to be free of any bleeders. Skin was closed with a running subcuticular stitch of 3-0 Monocryl in a vertical mattress suture fashion using a Henri needle. Prineo mesh/glue was then applied to further approximate the incision. It should be noted that patient received 2 g of Ancef preoperatively for infection prophylaxis and had Pitocin infused after delivery of the placenta to facilitate uterine contraction. She also had sequential compression stockings in place for DVT prophylaxis. Patient was discharged from the operating room in satisfactory condition. Diagnosis: Stroke: No - Discharge Data Discharge Date: 10/24/17 Discharge Disposition: Home, Self-Care 01 Condition: Good - Discharge Diagnosis/Problem(s) (1) 38 weeks gestation of SNOMED Code(s): 68406271 ICD Code: Z3A.38 - 38 WEEKS GESTATION OF Status: Acute Current Visit: Yes (2) delivery delivered SNOMED Code(s): 408717923 ICD Code: O82 - ENCOUNTER FOR DELIVERY WITHOUT INDICATION Status: Acute Current Visit: Yes - Patient Summary/Data Operative Procedure(s) Performed: Repeat lower uterine segment transverse section through Pfannenstiel skin incision Complications: None Consults: None Hospital Course: Uneventful - Patient Instructions Diet: Usual Diet as Tolerated Driving: May Drive Today (Do not drive for 48 hours after last dose of Percocet. ) Showering/Bathing: May Shower, No Tub Bathing/Swimming (6 weeks) Wound/Incision Care: Keep Operative Site/Wound Site Clean and Dry Notify Provider of: Fever, Increased Pain, Swelling and Redness, Drainage, Nausea and/or Vomiting - Discharge Plan *PRESCRIPTION DRUG MONITORING PROGRAM REVIEWED*: Yes *COPY OF PRESCRIPTION DRUG MONITORING REPORT IN PATIENT JYOTI: Yes (No prescription narcotics found on search.) Prescriptions/Med Rec: Acetaminophen/oxyCODONE [Percocet 325-5 MG] 1 tab PO Q6H PRN #10 tablet PRN Reason: Pain (Moderate 4-6) Home Medications: Home Meds Cholecalciferol (Vitamin D3) [Vitamin D3] 1 tab PO DAILY 10/21/17 [History] Docusate Sodium [Colace] 100 mg PO DAILY 10/21/17 [History] Ferrous Sulfate [Iron] 325 mg PO DAILY 10/21/17 [History] Levothyroxine Sodium [Synthroid] 137 mcg PO ACBREAKFAST 10/21/17 [History] Loratadine [Claritin] 10 mg PO ASDIRECTED PRN 10/21/17 [History] PNV95/Ferrous Fumarate/FA [ Tablet] 1 tab PO DAILY 10/21/17 [History] Ranitidine HCl [Zantac 75] 1 tab PO ASDIRECTED PRN 10/21/17 [History] Acetaminophen/oxyCODONE [Percocet 325-5 MG] 1 tab PO Q6H PRN #10 tablet [Rx] Docusate Sodium [Colace] 100 mg PO Q12H PRN cap 10/24/17 [Rx] Ibuprofen [Motrin] 600 mg PO Q8H tablet 10/24/17 [Rx] Lanolin [Lansinoh HPA] 1 applic TOP ASDIRECTED PRN tube 10/24/17 [Rx] Referrals: Mj Childress MD [Primary Care Provider] - (Patient to call Thursday for appointment to see Dr. Childress in 2 weeks.) - Discharge Summary/Plan Comment DC Time >30 min.: No - Patient Data Vitals - Most Recent: Last Vital Signs Temp 97.9 F 10/24/17 02:49 Pulse 73 10/24/17 02:49 Resp 16 10/24/17 02:49 BP 113/69 10/24/17 02:49 Pulse Ox 98 10/24/17 02:49 Weight - Most Recent: 166 lb I&O - Last 24 hours: Intake & Output 10/23/17 10/24/17 10/24/17 22:59 06:59 14:59 Intake Total 320 Balance 320 Med Orders - Current: Current Medications Diphenhydramine HCl (Benadryl) 25 mg IVPUSH Q6H PRN PRN Reason: Itching or Nausea Last Admin: 10/21/17 07:48 Dose: 25 mg Docusate Sodium (Colace) 100 mg PO Q12H PRN PRN Reason: Constipation Emollient Ointment (Lansinoh Hpa) 0 gm TOP ASDIRECTED PRN PRN Reason: Sore Nipples Last Admin: 10/21/17 08:09 Dose: 1 applic Ephedrine Sulfate (Ephedrine Sulfate) 5 mg IVPUSH SEECOMMENT PRN PRN Reason: Other Ibuprofen (Motrin) 800 mg PO Q8H [facility] Last Admin: 10/24/17 02:27 Dose: 800 mg Levothyroxine Sodium (Levothroid) 137 mcg PO ACBREAKFAST [facility] Last Admin: 10/24/17 07:31 Dose: Not Given Naloxone HCl (Narcan) 0.1 mg IVPUSH SEECOMMENT PRN PRN Reason: Respiratory Depression Ondansetron HCl (Zofran) 4 mg IV Q4H PRN PRN Reason: Nausea/Vomiting Oxycodone/Acetaminophen (Percocet 325-5 Mg) 2 tab PO Q4H PRN PRN Reason: Pain (moderate 4-6) Last Admin: 10/24/17 08:18 Dose: 2 tab Prenat Multivit/[place]/Iron/Folic Ac ( Plus Iron) 1 each PO BEDTIME [facility] Last Admin: 10/23/17 20:54 Dose: Not Given Simethicone (Simethicone) 80 mg PO PCBED [facility] Last Admin: 10/24/17 08:18 Dose: 80 mg Discontinued Medications Bupivacaine HCl (Marcaine 0.5%) Confirm Administered Dose 30 ml .ROUTE .[facility] ONE Stop: 10/21/17 02:51 Last Admin: 10/21/17 03:30 Dose: 20 ml Bupivacaine HCl/Dextrose (Marcaine 0.75% Spinal) Confirm Administered Dose 2 ml .ROUTE .[facility] ONE Stop: 10/21/17 03:01 Cefazolin Sodium (Ancef) Confirm Administered Dose 2 gm .ROUTE .[facility] ONE Stop: 10/21/17 03:01 Citric Acid/Sodium Citrate (Bicitra Solution) Confirm Administered Dose 30 ml .ROUTE .[facility] ONE Stop: 10/21/17 02:24 Last Admin: 10/21/17 16:59 Dose: Not Given Citric Acid/Sodium Citrate (Bicitra Solution) 30 ml PO ONETIME ONE Stop: 10/21/17 02:31 Last Admin: 10/21/17 02:39 Dose: 30 ml Lactated Ringer's (Ringers, Lactated) Confirm Administered Dose 1,000 mls @ as directed .ROUTE .[facility] ONE Stop: 10/21/17 02:24 Last Admin: 10/21/17 17:00 Dose: Not Given Cefazolin Sodium/Dextrose 2 gm (/ Premix) 50 mls @ 100 mls/hr IV ONETIME ONE Stop: 10/21/17 02:59 Last Admin: 10/21/17 17:00 Dose: Not Given Lactated Ringer's (Ringers, Lactated) 1,000 mls [facility] Admin: 10/21/17 02:39 Dose: 125 mls/hr Oxytocin/Lactated Ringer's (Pitocin In Lr 10 Units/1,000 Ml) 10 unit in 1,000 mls @ 100 mls/hr IV ASDIRECTED [facility] Lactated Ringer's (Ringers, Lactated) Confirm Administered Dose 1,000 mls @ as directed .ROUTE .[facility] ONE Stop: 10/21/17 03:31 Dextrose/Lactated Ringer's (Dextrose 5%-Lactated Ringers) 1,000 mls @ 125 mls/ hr IV ASDIRECTED [facility] Stop: 10/21/17 13:26 Last Admin: 10/21/17 05:47 Dose: 125 mls/hr Ibuprofen (Motrin) 800 mg PO Q8H [facility] Last Admin: 10/21/17 17:00 Dose: Not Given Ketorolac Tromethamine (Toradol) Confirm Administered Dose 30 mg .ROUTE .[facility] ONE Stop: 10/21/17 03:48 Metoclopramide HCl (Reglan) Confirm Administered Dose 10 mg .ROUTE .[facility] ONE Stop: 10/21/17 02:23 Last Admin: 10/21/17 16:59 Dose: Not Given Metoclopramide HCl (Reglan) 10 mg IVPUSH ONETIME ONE Stop: 10/21/17 02:31 Last Admin: 10/21/17 02:39 Dose: 10 mg Morphine Sulfate (Duramorph Pf) Confirm Administered Dose 1 mg .ROUTE .[facility] ONE Stop: 10/21/17 02:58 Nalbuphine HCl (Nubain) 10 mg IVPUSH Q2H PRN PRN Reason: pain Oxytocin (Pitocin) Confirm Administered Dose 10 unit .ROUTE .[facility] ONE Stop: 10/21/17 03:01 Oxytocin (Pitocin) Confirm Administered Dose 10 unit .ROUTE .[facility] ONE Stop: 10/21/17 03:31 Oxytocin (Pitocin) Confirm Administered Dose 20 unit .ROUTE .[facility] ONE Stop: 10/21/17 03:54 Sodium Chloride (Saline Flush) 10 ml FLUSH ASDIRECTED PRN PRN Reason: Keep Vein Open
== END 2017-10-24 11:06 | disposition home or self-care (01) | DRG 540 ==
LOC: JD.OBCHECK 01:54 → JD.OB 01:54 → JD.OBCHECK 02:29 → JD.OB 02:30
PROVIDERS: ADMIT Obstetrics & Gynecology; ATTEND Obstetrics & Gynecology
PROC: 10D00Z1 Extraction of Products of Conception, Low, Open Approach (ICD-10-PCS; principal; 2017-10-21)
PROC: 6A550ZT Pheresis of Cord Blood Stem Cells, Single (ICD-10-PCS; 2017-10-21)
PROC: 3E0234Z Introduction of Serum, Toxoid and Vaccine into Muscle, Percutaneous Approach (ICD-10-PCS; 2017-10-21)
DX: O34.211 Maternal care for low transverse scar from previous cesarean delivery (principal); N85.8 Other specified noninflammatory disorders of uterus; Z3A.38 38 weeks gestation of pregnancy; Z37.0 Single live birth; O99.284 Endocrine, nutritional and metabolic diseases complicating childbirth; H05.20 Unspecified exophthalmos; O75.89 Other specified complications of labor and delivery; Z79.899 Other long term (current) drug therapy; O99.824 Streptococcus B carrier state complicating childbirth; E89.0 Postprocedural hypothyroidism; Z90.49 Acquired absence of other specified parts of digestive tract; O99.62 Diseases of the digestive system complicating childbirth; K21.9 Gastro-esophageal reflux disease without esophagitis; O26.893 Other specified pregnancy related conditions, third trimester; Z67.41 Type O blood, Rh negative
CPT/HCPCS: 36415; 59025; 85025; 85461; 86592; 86850; 86900; 86901; A9270-GY; J0690; J1200; J1885; J2274; J2590; J2765; J2790; J3490; J7042; J7120

== ENCOUNTER 2021-09-24 06:38 | Day surgery (SDC) | payer BC ==
[~2021-09-24 06:38] MED LIST: Lidocaine 1%/Sod Bicarbonate in NS 8.4% 1 ML Syringe IDERM PRN; Scopolamine 1.5 MG Transdermal Patch TOP ONE; Sodium Chloride 0.9% 10 ML Syringe FLUSH PRN; Sodium Chloride 0.9% 10 ML Syringe FLUSH SCH
[2021-09-24] MEDS: Lactated Ringers 1,000 ML IV SCH ×3 (06:45→14:00)
[2021-09-24] MEDS ORDERED: Lidocaine 1% with EPINEPHrine 1:100,000 20 ML MDV ONE (07:14)
[2021-09-24 07:15] LABS: ESTIMATED GFR 97 mL/min (>60)
[2021-09-24] MEDS ORDERED: Bupivacaine 0.5% 30 ML SDV ONE (07:15)
[2021-09-24] MEDS ORDERED: Scopolamine 1.5 MG Transdermal Patch TOP ONE (07:15)
[2021-09-24] MEDS ORDERED: Sodium Chloride 0.9% 50 ML SDV ONE (07:15)
[2021-09-24] MEDS ORDERED: Midazolam 1 MG/ML 2 ML SDV ONE (07:40)
[2021-09-24] MEDS ORDERED: Propofol 200 MG/20 ML SDV ONE (07:40)
[2021-09-24] MEDS ORDERED: fentaNYL 250 MCG/5 ML SDV ONE (07:40)
[2021-09-24] MEDS ORDERED: ceFAZolin 2 GM Vial ONE (07:41)
[2021-09-24] MEDS ORDERED: Lidocaine 1% 5 ML VIAL ONE (07:41)
[2021-09-24] MEDS ORDERED: Rocuronium 50 MG/5 ML Vial ONE (07:41)
[2021-09-24] MEDS ORDERED: Ondansetron 4 MG/2 ML SDV ONE (07:41)
[2021-09-24] MEDS ORDERED: Ketorolac 30 MG/ML SDV ONE (07:41)
[2021-09-24] MEDS ORDERED: Dexamethasone 4 MG/ML 5 ML MDV ONE (07:41)
[2021-09-24] MEDS ORDERED: diphenhydrAMINE 50 MG/ML SDV ONE (07:41)
[2021-09-24] MEDS ORDERED: Dexmedetomidine 200 MCG/2 ML SDV ONE (08:49)
[2021-09-24] MEDS ORDERED: Sodium Chloride 0.9% 100 ML ONE (08:49)
[2021-09-24] MEDS ORDERED: ePHEDrine 50 MG/ML SDV ONE (09:01)
[2021-09-24] MEDS ORDERED: Lactated Ringers 1,000 ML ONE (09:03)
[2021-09-24] MEDS ORDERED: HYDROmorphone 0.5 MG/0.5 ML Syringe IVPUSH PRN (09:22)
[2021-09-24] MEDS ORDERED: Acetaminophen/oxyCODONE 325-5 MG Tab PO PRN (09:35)
[2021-09-24] MEDS ORDERED: Ondansetron 4 MG/2 ML SDV IVPUSH PRN (09:35)
[2021-09-24] MEDS: fentaNYL 100 MCG/2 ML SDV IVPUSH PRN ×3 (10:06→12:20)
[2021-09-24] MEDS ORDERED: Ketorolac 30 MG/ML SDV IVPUSH SCH (14:00)
[2021-09-24] MEDS ORDERED: Haloperidol Lactate 5 MG/ML SDV IVPUSH ONE (14:30)
== END 2021-09-24 14:30 | disposition home or self-care (01) ==
LOC: JD.SDS 06:38
PROVIDERS: ATTEND Obstetrics & Gynecology
DX: N80.0 Endometriosis of uterus (principal); N73.6 Female pelvic peritoneal adhesions (postinfective); N72 Inflammatory disease of cervix uteri; E05.00 Thyrotoxicosis with diffuse goiter without thyrotoxic crisis or storm; K21.9 Gastro-esophageal reflux disease without esophagitis; E89.0 Postprocedural hypothyroidism; Z79.890 Hormone replacement therapy; Z79.899 Other long term (current) drug therapy; Z88.3 Allergy status to other anti-infective agents; Z90.49 Acquired absence of other specified parts of digestive tract; Z98.891 History of uterine scar from previous surgery; Z98.890 Other specified postprocedural states
CPT/HCPCS: 36415; 58262; 81003; 81025; 82565; 84443; 85025; 86850; 86900; 86901; A9270; J0690; J1100; J1170; J1200; J1630; J1885; J2250; J2405; J2704; J3010; J3490; J7120; 00944